=== PATIENT | male | born 1980 | race Two or more races ===

== ENCOUNTER 2019-09-27 09:59 | Outpatient (CLI) | payer OTHER ==
[~2019-09-27 09:59] MED LIST: ALBUTEROL
== END 2019-09-27 10:01 | disposition home or self-care (01) ==
LOC: SONOGRAMA 09:59
DX: R10.84 Generalized abdominal pain (principal)

== ENCOUNTER 2020-09-27 14:58 | Emergency (ER) | payer OTHER ==
[~2020-09-27] VITALS: Ht 177.8 cm; Wt 106.6 kg
[2020-09-27] MEDS ORDERED: FORTAMET500 MG (15:12)
[2020-09-27] MEDS ORDERED: LOSARTAN-HCTZ1 EACH (15:12)
[2020-09-27] MEDS ORDERED: KETO10TA2 PO (20:51)
[2020-09-27] MEDS ORDERED: METFORMIN HCL1000 M3 PO (20:51)
[2020-09-27] MEDS ORDERED: CLEOCIN HCL300 MG PO (20:51)
== END 2020-09-27 21:00 | disposition home or self-care (01) ==
LOC: ER 14:58
DX: N49.2 Inflammatory disorders of scrotum (principal); E11.9 Type 2 diabetes mellitus without complications; Z11.52 Encounter for screening for COVID-19

== ENCOUNTER 2021-05-08 08:52 | Emergency (ER) | payer OTHER ==
[~2021-05-08] VITALS: Ht 177.8 cm; Wt 103.4 kg
[~2021-05-08 08:52] MED LIST changes: +CLEOCIN HCL300 MG PO; +FORTAMET500 MG; +KETO10TA2 PO; +LOSARTAN-HCTZ1 EACH; +METFORMIN HCL1000 M3 PO
[2021-05-08] MEDS ORDERED: METRONIDAZOLE500 MG PO (09:01)
[2021-05-08] MEDS ORDERED: GLIMEPIRIDE2 M1 PO (09:02)
[2021-05-08] MEDS ORDERED: ACID REDUCER20 M1 PO (09:02)
[2021-05-08] MEDS ORDERED: INDAPAMIDE2.5 MG PO (09:02)
[2021-05-08] MEDS ORDERED: CIPRO500 MG/5 M PO (09:03)
[2021-05-08] MEDS ORDERED: INTESTINEX680 M1 PO (15:14)
[2021-05-08] MEDS ORDERED: DICY20TA PO (15:14)
== END 2021-05-08 15:23 | disposition home or self-care (01) ==
LOC: ER 08:52
DX: K52.89 Other specified noninfective gastroenteritis and colitis (principal); R10.32 Left lower quadrant pain

== ENCOUNTER 2022-07-31 09:52 | Emergency (ER) | payer OTHER ==
[~2022-07-31] VITALS: Ht 177.8 cm; Wt 108.9 kg
[~2022-07-31 09:52] MED LIST changes: +ACID REDUCER20 M1 PO; +CIPRO500 MG/5 M PO; +DICY20TA PO; +GLIMEPIRIDE2 M1 PO; +INDAPAMIDE2.5 MG PO; +INTESTINEX680 M1 PO; +METRONIDAZOLE500 MG PO
== END 2022-07-31 14:19 | disposition home or self-care (01) ==
LOC: ER 09:52
DX: M79.643 Pain in unspecified hand (principal); G89.29 Other chronic pain; Z88.0 Allergy status to penicillin

== ENCOUNTER 2023-03-04 09:45 | Outpatient (CLI) | payer OTHER | END 2023-03-06 11:32 | disposition home or self-care (01) | LOC: MRI 09:45 | PROVIDERS: ATTEND General Practice | DX: M75.80 Other shoulder lesions, unspecified shoulder (principal) | CPT/HCPCS: 73221 ==

== ENCOUNTER 2023-05-27 08:56 | Outpatient (CLI) | payer OTHER | END 2023-05-27 09:06 | disposition home or self-care (01) | LOC: SONOGRAMA 08:56 | PROVIDERS: ATTEND Internal Medicine Rheumatology | DX: E04.1 Nontoxic single thyroid nodule (principal); Z88.0 Allergy status to penicillin ==